=== PATIENT | male | born 1985 | race Caucasian/White ===

== ENCOUNTER 2017-09-19 09:17 | Emergency (ER) | payer SELFPAY ==
[2017-09-19] MEDS ORDERED: Ketorolac 60 MG/2 ML SDV IM ONE (09:42)
--- NOTE | 2017-09-19 09:43 | EDM.PDOC ---
<Stephanie Mcfarlane - Last Filed: 09/19/17 10:46> ED HPI GENERAL MEDICAL PROBLEM - General Chief Complaint: Back Pain or Injury Stated Complaint: BACK PAIN Time Seen by Provider: 09/19/17 09:42 Source of Information: Reports: Patient, Family - History of Present Illness Onset: Sudden Duration: Day(s): (4-5) Location: Reports: Back (L-3 S1) Associated Symptoms: Reports: No Other Symptoms - Related Data Allergies Allergy/AdvReac Type Severity Reaction Status Date / Time amoxicillin [From Augmentin] Allergy Rash Verified 09/19/17 09:28 clavulanic acid Allergy Rash Verified 09/19/17 09:28 [From Augmentin] Home Meds: Home Meds . [No Known Home Meds] 09/19/17 [History] ED ROS GENERAL - Review of Systems Review Of Systems: ROS reveals no pertinent complaints other than HPI. ED EXAM, GENERAL - Physical Exam Exam: See Below (See dictation) Course - Vital Signs Last Recorded V/S: Last Vital Signs Temp 98.4 F 09/19/17 09:24 Pulse 62 09/19/17 09:24 Resp 20 09/19/17 09:24 BP 138/80 09/19/17 09:24 Pulse Ox 99 09/19/17 09:24 - Orders/Labs/Meds Meds: Medications Discontinued Medications Generic Name Dose Route Start Last Admin Trade Name Rosario PRN Reason Stop Dose Admin Ketorolac Tromethamine 60 mg 09/19/17 09:42 09/19/17 10:02 Toradol IM 09/19/17 09:43 60 mg ONETIME ONE Administration Departure - Departure Disposition: Home, Self-Care 01 Clinical Impression: Low back pain - Discharge Information Referrals: PCP,None [Primary Care Provider] - Forms: ED Department Discharge Additional Instructions: The following information is given to patients seen in the emergency department who are being discharged to home. This information is to outline your options for follow-up care. We provide all patients seen in our emergency department with a follow-up referral. The need for follow-up, as well as the timing and circumstances, are variable depending upon the specifics of your emergency department visit. If you don't have a primary care physician on staff, we will provide you with a referral. We always advise you to contact your personal physician following an emergency department visit to inform them of the circumstance of the visit and for follow-up with them and/or the need for any referrals to a consulting specialist. The emergency department will also refer you to a specialist when appropriate. This referral assures that you have the opportunity for followup care with a specialist. All of these measure are taken in an effort to provide you with optimal care, which includes your followup. Under all circumstances we always encourage you to contact your private physician who remains a resource for coordinating your care. When calling for followup care, please make the office aware that this follow-up is from your recent emergency room visit. If for any reason you are refused follow-up, please contact the [facility] emergency department at and asked to speak to the emergency department charge nurse. Prescription has been written for hydrocodone/APAP 5/325 mg 1 tablet 3 times a day when necessary for pain #12 no refill Flexeril 10 mg 1 tablet 3 times a day as needed for muscle spasm Off work until 09/22/17 <Jens Coyle - Last Filed: 09/19/17 11:38> ED HPI GENERAL MEDICAL PROBLEM - General Source of Information: Reports: Patient - History of Present Illness INITIAL COMMENTS - FREE TEXT/NARRATIVE: HISTORY AND PHYSICAL: History of present illness: [ Patient has low back pain 6 out of 10 for 3 days no injury or trauma, patient pain began after extended period on the couch footdrop saddle anesthesia bowel or urine symptoms No intradural, ]Patient was seen in conjunction with stephanie mcfarlane Review of systems: As per history of present illness and below otherwise all systems reviewed and negative. Past medical history: As per history of present illness and as reviewed below otherwise noncontributory. Surgical history: As per history of present illness and as reviewed below otherwise noncontributory. Social history: No reported history of drug or alcohol abuse. Family history: As per history of present illness and as reviewed below otherwise noncontributory. Physical exam: HEENT: Atraumatic, normocephalic, pupils reactive, negative for conjunctival pallor or scleral icterus, mucous membranes moist, throat clear, neck supple, nontender, trachea midline. Lungs: Clear to auscultation, breath sounds equal bilaterally, chest nontender. Heart: S1S2, regular, negative for clicks, rubs, or JVD. Abdomen: Soft, nondistended, nontender. Negative for masses or hepatosplenomegaly. Negative for costovertebral tenderness. Pelvis: Stable nontender. Genitourinary: Deferred. Rectal: Deferred. Extremities: Atraumatic, negative for cords or calf pain. Neurovascular unremarkable. Right leg raise to 30 without radiculopathy some increase in pain Neuro: Awake, alert, oriented. Cranial nerves II through XII unremarkable. Cerebellum unremarkable. Motor and sensory unremarkable throughout. Exam nonfocal. Footdrop or saddle anesthesia Diagnostics: []Lumbar spine Therapeutics: Toradol 60 IM Impression: []Low back pain Definitive disposition and diagnosis as appropriate pending reevaluation and review of above. Lower Back Pain Score (Numeric/FACES): 8 Past Medical History - Past Health History Medical/Surgical History: Denies Medical/Surgical History - Infectious Disease History Infectious Disease History: Reports: Chicken Pox, Measles Social & Family History - Family History Family Medical History: Noncontributory - Caffeine Use Caffeine Use: Reports: Coffee - Recreational Drug Use Recreational Drug Use: No Course - Orders/Labs/Meds Meds: Medications Discontinued Medications Generic Name Dose Route Start Last Admin Trade Name Freq PRN Reason Stop Dose Admin Ketorolac Tromethamine 60 mg 09/19/17 09:42 09/19/17 10:02 Toradol IM 09/19/17 09:43 60 mg ONETIME ONE Administration Departure - Departure Time of Disposition: 11:37 Condition: Good
--- NOTE | 2017-09-19 10:52 | CR ---
EXAMINATION: Lumbar spine HISTORY: Pain COMPARISON: None TECHNIQUE: AP and lateral views of the lumbar spine. FINDINGS: The lumbar spinal alignment is normal. The vertebral body heights and disc spaces appear we ll-maintained. There is no fracture or dislocation. SI joints are symmetric. Bone mineralization is n ormal. IMPRESSION: Unremarkable lumbar spine.
== END 2017-09-19 11:48 | disposition home or self-care (01) ==
LOC: MW.ED 09:17
DX: M54.5 Low back pain (principal); Z88.1 Allergy status to other antibiotic agents
CPT/HCPCS: 72100; 96372; 99283; J1885; 99284

== ENCOUNTER 2019-12-18 08:10 | Emergency (ER) | payer SELFPAY ==
[2019-12-18] MEDS ORDERED: Acetaminophen/oxyCODONE 325-5 MG Tab PO ONE (08:35)
--- NOTE | 2019-12-18 08:47 | EDM.PDOC ---
ED HPI GENERAL MEDICAL PROBLEM - General Chief Complaint: Genitourinary Problem Stated Complaint: PAIN POST VESECTOMY Time Seen by Provider: 12/18/19 08:30 - History of Present Illness INITIAL COMMENTS - FREE TEXT/NARRATIVE: 34-year-old gentleman status post vasectomy in October 29 presented to ER for left groin and left testicular pain that started 2 days ago. Has been worsening since then. No penile discharge. never Had pain like this before. Worst with palpation. Nothing makes it better. Describes some urinary hesitancy. no vomiting no diarrhea. No other associated symptoms left groin, abdominal Pain Score (Numeric/FACES): 10 - Related Data Allergies Allergy/AdvReac Type Severity Reaction Status Date / Time amoxicillin [From Augmentin] Allergy Rash Verified 12/18/19 08:21 clavulanic acid Allergy Rash Verified 12/18/19 08:21 [From Augmentin] Home Meds: Home Meds Acetaminophen 650 mg PO Q6HR PRN 5 Days #30 tablet 12/18/19 [Rx] Acetaminophen/oxyCODONE [Percocet 325-5 MG] 1 each PO Q6HR PRN 2 Days #5 tab [Rx] Aspirin 81 mg PO DAILY #30 tab.chew 12/18/19 [Rx] Past Medical History - Past Health History Medical/Surgical History: Denies Medical/Surgical History - Infectious Disease History Infectious Disease History: Reports: Chicken Pox, Measles - Past Surgical History GI Surgical History: Reports: Appendectomy Male Surgical History: Reports: Vasectomy Musculoskeletal Surgical History: Reports: Other (See Below) Other Musculoskeletal Surgeries/Procedures:: Left Foot Social & Family History - Family History Family Medical History: Noncontributory - Tobacco Use Smoking Status *Q: Current Every Day Smoker Years of Tobacco use: 15 Packs/Tins Daily: 1 - Caffeine Use Caffeine Use: Reports: Coffee - Recreational Drug Use Recreational Drug Use: No ED ROS GENERAL - Review of Systems Review Of Systems: See Below Constitutional: Reports: No Symptoms HEENT: Reports: No Symptoms Respiratory: Reports: No Symptoms Cardiovascular: Reports: No Symptoms Endocrine: Reports: No Symptoms GI/Abdominal: Reports: Abdominal Pain : Reports: Pain Musculoskeletal: Reports: No Symptoms Skin: Reports: No Symptoms Neurological: Reports: No Symptoms Psychiatric: Reports: No Symptoms Hematologic/Lymphatic: Reports: No Symptoms Immunologic: Reports: No Symptoms ED EXAM, RENAL/ - Physical Exam Exam: See Below Text/Narrative:: In discomfort due to pain. Testicles were symmetric bilaterally normal lie. Could not elicit the cremasteric reflex bilaterally Uncircumcised Tenderness to palpation in the left testicle Exam Limited By: No Limitations General Appearance: Alert, WD/WN, No Apparent Distress Neck: Normal Inspection Respiratory/Chest: No Respiratory Distress, Lungs Clear, Normal Breath Sounds Cardiovascular: Normal Peripheral Pulses, Regular Rate, Rhythm, No Edema GI/Abdominal: Soft, Non-Tender (Male) Exam: No Hernia, Normal Inspection, Inguinal Lymphadenopathy, Testicular Tenderness (L) Rectal (Males) Exam: Deferred Back Exam: Normal Inspection. No: CVA Tenderness (L), CVA Tenderness (R) Neurological: Alert, Oriented, Normal Gait Psychiatric: Normal Affect Skin Exam: Warm Course - Vital Signs Last Recorded V/S: Last Vital Signs Temp 96.7 F L 12/18/19 08:17 Pulse 112 H 12/18/19 08:17 Resp 20 12/18/19 08:17 BP 114/81 12/18/19 08:17 Pulse Ox 98 12/18/19 08:17 - Orders/Labs/Meds Orders: Active Orders 24 hr Category Date Time Status Scrotal Duplex Ltd [US] Routine Exams 12/18/19 Taken CHLAMYDIA AND GONORRHEA BY TMA Stat Lab 12/18/19 08:36 Received Labs: Laboratory Tests 12/18/19 12/18/19 12/18/19 Range/Units 08:36 08:45 08:45 WBC 7.63 (4.0-11.0) K/uL RBC 5.46 (4.50-5.90) M/uL Hgb 17.6 H (13.0-17.0) g/dL Hct 51.1 H (38.0-50.0) % MCV 93.6 (80.0-98.0) fL MCH 32.2 H (27.0-32.0) pg MCHC 34.4 (31.0-37.0) g/dL RDW Std Deviation 41.1 (28.0-62.0) fl RDW Coeff of [place] 12 (11.0-15.0) % Plt Count 332 (150-400) K/uL MPV 10.20 (7.40-12.00) fL Neut % (Auto) 70.3 (48.0-80.0) % Lymph % (Auto) 18.5 (16.0-40.0) % Sawyer % (Auto) 9.8 (0.0-15.0) % Eos % (Auto) 1.0 (0.0-7.0) % Baso % (Auto) 0.4 (0.0-1.5) % Neut # (Auto) 5.4 (1.4-5.7) K/uL Lymph # (Auto) 1.4 (0.6-2.4) K/uL Sawyer # (Auto) 0.8 (0.0-0.8) K/uL Eos # (Auto) 0.1 (0.0-0.7) K/uL Baso # (Auto) 0.0 (0.0-0.1) K/uL Nucleated RBC % 0.0 /100WBC Nucleated RBCs # 0 K/uL Sodium 141 (136-148) mmol/L Potassium 3.7 (3.5-5.1) mmol/L Chloride 104 (98-107) mmol/L Carbon Dioxide 26.9 (21.0-32.0) mmol/L BUN 12 (7.0-18.0) mg/dL Creatinine 1.1 (0.8-1.3) mg/dL Est Cr Clr Drug Dosing 98.88 mL/min Estimated GFR (MDRD) > 60.0 ml/min Glucose 111 H (74-106) mg/dL Calcium 9.1 (8.5-10.1) mg/dL Total Bilirubin 0.6 (0.2-1.0) mg/dL AST 18 (15-37) IU/L ALT 28 (14-63) IU/L Alkaline Phosphatase 92 (46-116) U/L Total Protein 7.1 (6.4-8.2) g/dL Albumin 3.7 (3.4-5.0) g/dL Globulin 3.4 (2.6-4.0) g/dL Albumin/Globulin Ratio 1.1 (0.9-1.6) Lipase 136 (73-393) U/L Urine Color YELLOW Urine Appearance CLEAR Urine pH 7.5 (5.0-8.0) Ur Specific [place] 1.025 (1.001-1.035) Urine Protein NEGATIVE (NEGATIVE) mg/dL Urine Glucose (UA) NEGATIVE (NEGATIVE) mg/dL Urine Ketones TRACE H (NEGATIVE) mg/dL Urine Occult Blood NEGATIVE (NEGATIVE) Urine Nitrite NEGATIVE (NEGATIVE) Urine Bilirubin SMALL H (NEGATIVE) Urine Ictotest NEGATIVE Urine Urobilinogen 2.0 H (<2.0) EU/dL Ur Leukocyte Esterase NEGATIVE (NEGATIVE) Meds: Medications Discontinued Medications Generic Name Dose Route Start Last Admin Trade Name Rosario PRN Reason Stop Dose Admin Morphine Sulfate 4 mg 12/18/19 10:17 12/18/19 10:48 Morphine IVPUSH 12/18/19 10:18 4 mg ONETIME ONE Administration Oxycodone/Acetaminophen 1 tab 12/18/19 08:35 12/18/19 08:43 Percocet 325-5 Mg PO 12/18/19 08:36 1 tab ONETIME ONE Administration - Re-Assessments/Exams Free Text/Narrative Re-Assessment/Exam: 12/18/19 08:46 Stat scrotal ultrasound to rule out torsion 12/18/19 12:41 Ultrasound essentially ruled out torsion. Found to have a thrombosed varicocele. d/t severity of the pain patient was seen by Dr. Lobo. recommended aspirin and pain control. I reassesed the patient. he felt improved. testicular exam was unremarkable. His abdominal exam was soft, non tender non distended and he denied abdominal pain. The patient will follow up with Dr. Duke as an outpatient. I discussed return precautions with the patient. Patient educated on the discharge plan and agreed with the plan. Departure - Departure Time of Disposition: 12:47 Disposition: Home, Self-Care 01 Clinical Impression: Left varicocele - Discharge Information Instructions: Varicocele Referrals: PCP,None [Primary Care Provider] - Forms: ED Department Discharge Additional Instructions: Follow up with Dr. Lobo in office on Tuesday12/26/2019 at 100. Return to ED if you have worsening pain you develop abdominal pain fever vomiting or any concerns The following information is given to patients seen in the emergency department who are being discharged to home. This information is to outline your options for follow-up care. We provide all patients seen in our emergency department with a follow-up referral. The need for follow-up, as well as the timing and circumstances, are variable depending upon the specifics of your emergency department visit. If you don't have a primary care physician on staff, we will provide you with a referral. We always advise you to contact your personal physician following an emergency department visit to inform them of the circumstance of the visit and for follow-up with them and/or the need for any referrals to a consulting specialist. The emergency department will also refer you to a specialist when appropriate. This referral assures that you have the opportunity for follow-up care with a specialist. All of these measure are taken in an effort to provide you with optimal care, which includes your follow-up. Under all circumstances we always encourage you to contact your private physician who remains a resource for coordinating your care. When calling for follow-up care, please make the office aware that this follow-up is from your recent emergency room visit. If for any reason you are refused follow-up, please contact the [facility] Emergency Department at and asked to speak to the emergency department charge nurse. Sepsis Event Note - Evaluation Sepsis Screening Result: No Definite Risk - Focused Exam Vital Signs: Vital Signs Temp Pulse Resp BP Pulse Ox 12/18/19 08:17 96.7 F L 112 H 20 114/81 98 Date Exam was Performed: 12/18/19 Time Exam was Performed: 12:47 - My Orders Last 24 Hours: My Active Orders 12/18/19 Scrotal Duplex Ltd [US] Routine 12/18/19 08:36 CHLAMYDIA AND GONORRHEA BY TMA Stat - Assessment/Plan Last 24 Hours: My Active Orders 12/18/19 Scrotal Duplex Ltd [US] Routine 12/18/19 08:36 CHLAMYDIA AND GONORRHEA BY TMA Stat
[2019-12-18 09:16] LABS: BLOOD UREA NITROGEN,BUN 12 mg/dL (7.0-18.0); CARBON DIOXIDE,CO2 26.9 mmol/L (21.0-32.0); CHLORIDE,CL 104 mmol/L (98-107); GLUCOSE RANDOM 111 mg/dL (74-106); LIPASE 136 U/L (73-393); POTASSIUM,K 3.7 mmol/L (3.5-5.1); SODIUM,NA 141 mmol/L (136-148)
--- NOTE | 2019-12-18 10:01 | US ---
Testicular ultrasound: Multiple real-time images of the testicles were obtained. Comparison: No prior testicular imaging. Testicles have a homogeneous ultrasound appearance. No intratesticular abnormality is seen. Both arterial and venous blood flow are felt to be present within the testicles. Left-sided varicocele appears to be present showing some thrombus within the veins. Minimal hydrocele is noted on the right side. Measurements: Right testicle: 3.4 x 1.8 x 2.6 cm Left testicle: 3.2 x 1.9 x 2.6 cm Impression: 1. Left-sided varicocele showing some intraluminal thrombus within the varicocele. 2. Minimal right-sided hydrocele. 3. No intratesticular abnormality is appreciated. Diagnostic code #3 This report was dictated in [place] Standard Time
[2019-12-18] MEDS ORDERED: Morphine 4 MG/ML Syringe IVPUSH ONE (10:17)
--- NOTE | 2019-12-18 14:05 | US ---
EXAM DATE: 12/18/19 PATIENT'S AGE: 34 Testicular ultrasound: Multiple real-time images of the testicles were obtained. Comparison: No prior testicular imaging. Testicles have a homogeneous ultrasound appearance. No intratesticular abnormality is seen. Both arterial and venous blood flow are felt to be present within the testicles. Left-sided varicocele appears to be present showing some thrombus within the veins. Minimal hydrocele is noted on the right side. Measurements: Right testicle: 3.4 x 1.8 x 2.6 cm Left testicle: 3.2 x 1.9 x 2.6 cm Impression: 1. Left-sided varicocele showing some intraluminal thrombus within the varicocele. 2. Minimal right-sided hydrocele. 3. No intratesticular abnormality is appreciated. Diagnostic code #3 This report was dictated in [place] Standard Time Report Signed by Proxy. ANDRIY
== END 2019-12-18 13:17 | disposition home or self-care (01) ==
LOC: MW.ED 08:10
DX: I86.1 Scrotal varices (principal); F17.210 Nicotine dependence, cigarettes, uncomplicated; Z88.1 Allergy status to other antibiotic agents
CPT/HCPCS: 36415; 76870; 80053; 81003; 83690; 85025; 87491; 87591; 93976; 96374; 99284; A9270; J2270

== ENCOUNTER 2019-12-20 22:29 | Emergency (ER) | payer SELFPAY ==
[2019-12-20] MEDS ORDERED: Ketorolac 60 MG/2 ML SDV IM ONE (22:54)
--- NOTE | 2019-12-20 23:01 | EDM.PDOC ---
ED HPI GENERAL MEDICAL PROBLEM - General Chief Complaint: Genitourinary Problem Stated Complaint: BULGE IN GROIN AREA Time Seen by Provider: 12/20/19 22:56 Source of Information: Reports: Patient History Limitations: Reports: No Limitations - History of Present Illness INITIAL COMMENTS - FREE TEXT/NARRATIVE: He was seen 2 days ago with left-sided testicular pain. Patient still has the pain. Patient was diagnosed as a with a left-sided varicocele sawing some intraluminal thrombus within the varicocele patient had minimal right-sided hydrocele no intestinal abnormality was appreciated by ultrasound. Patient states he has pain now. Patient did not wear scrotal support and states his pain medicine is not working. 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 Medication(s) (Percocet 5 tabs) left inguinal Pain Score (Numeric/FACES): 10 - Related Data Allergies Allergy/AdvReac Type Severity Reaction Status Date / Time amoxicillin [From Augmentin] Allergy Rash Verified 12/20/19 22:43 clavulanic acid Allergy Rash Verified 12/20/19 22:43 [From Augmentin] Home Meds: Home Meds Acetaminophen 650 mg PO Q6HR PRN 5 Days #30 tablet 12/18/19 [Rx] Acetaminophen/oxyCODONE [Percocet 325-5 MG] 1 each PO Q6HR PRN 2 Days #5 tab [Rx] Aspirin 81 mg PO DAILY #30 tab.chew 12/18/19 [Rx] Past Medical History - Past Health History Medical/Surgical History: Denies Medical/Surgical History HEENT History: Reports: None Cardiovascular History: Reports: None Respiratory History: Reports: None Gastrointestinal History: Reports: None Genitourinary History: Reports: None Musculoskeletal History: Reports: None Neurological History: Reports: None Psychiatric History: Reports: None Endocrine/Metabolic History: Reports: None 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 Hematologic History: Reports: None Immunologic History: Reports: None Oncologic (Cancer) History: Reports: None Dermatologic History: Reports: None - Infectious Disease History Infectious Disease History: Reports: None - Past Surgical History Head Surgeries/Procedures: Reports: None GI Surgical History: Reports: Appendectomy Male Surgical History: Reports: Vasectomy Musculoskeletal Surgical History: Reports: Other (See Below) Other Musculoskeletal Surgeries/Procedures:: Left Foot Social & Family History - Family History Family Medical History: Noncontributory - Tobacco Use Smoking Status *Q: Current Every Day Smoker Years of Tobacco use: 15 Packs/Tins Daily: 0.5 - Caffeine Use Caffeine Use: Reports: Energy Drinks - Recreational Drug Use Recreational Drug Use: No ED ROS GENERAL - Review of Systems Review Of Systems: See Below Constitutional: Reports: No Symptoms. Denies: Fever, Chills, Malaise HEENT: Reports: No Symptoms. Denies: Contact Lenses, Dental Pain, Ear Discharge , Eye Discharge, Eye Pain Respiratory: Reports: No Symptoms. Denies: Shortness of Breath, Wheezing, Pleuritic Chest Pain Cardiovascular: Reports: No Symptoms. Denies: Chest Pain, Blood Pressure Problem, Claudication Endocrine: Reports: No Symptoms. Denies: Fatigue, High Glucose GI/Abdominal: Reports: No Symptoms. Denies: Abdominal Pain, Anorexia, Black Stool, Constipation, Diarrhea : Reports: Other (left Sided groin pain). Denies: Discharge, Dysuria, Flank Pain, Hematuria, Incontinence Musculoskeletal: Reports: No Symptoms Skin: Reports: No Symptoms Neurological: Reports: No Symptoms Psychiatric: Reports: No Symptoms Hematologic/Lymphatic: Reports: No Symptoms Immunologic: Reports: No Symptoms ED EXAM, RENAL/ - Physical Exam Exam: See Below Text/Narrative:: Patient has left-sided groin pain. Patient has a history of varicocele on the left. Patient did not use any supportive garments. And is in pain again Exam Limited By: No Limitations General Appearance: Alert, WD/WN, Moderate Distress Ears: Normal External Exam, Normal Canal, Hearing Grossly Normal, Normal TMs Nose: Normal Inspection, Normal Mucosa Throat/Mouth: Normal Inspection, Normal Lips Head: Atraumatic, Normocephalic Neck: Normal Inspection, Supple, Non-Tender Respiratory/Chest: No Respiratory Distress, Lungs Clear, No Accessory Muscle Use , Chest Non-Tender. No: Crackles Cardiovascular: Normal Peripheral Pulses, Regular Rate, Rhythm GI/Abdominal: Normal Bowel Sounds, Soft, Non-Tender, No Organomegaly, No Distention, No Abnormal Bruit (Male) Exam: No Hernia, Scrotal Swelling, Scrotum Tenderness (L), Testicular Tenderness (L) Rectal (Males) Exam: Deferred Back Exam: Normal Inspection, Full Range of Motion Extremities: Normal Inspection, Normal Range of Motion, No Pedal Edema, Normal Capillary Refill Psychiatric: Normal Affect, Normal Mood Skin Exam: Warm, Dry, Intact, Normal Color Lymphatic: No Adenopathy Course - Vital Signs Text/Narrative:: 34-year-old male presents the emergency room with left-sided groin pain. Patient was recently diagnosed by ultrasound having a left-sided varicocele with some intraluminal thrombus within the variceal. Patient had a minimal minimal right-sided hydronephrosis with no intestinal abnormality. Patient states he still has the pain. Patient did not use any supportive garments at the at the discharge. Last Recorded V/S: Last Vital Signs Temp 97.5 F 12/20/19 22:43 Pulse 55 L 12/20/19 22:43 Resp 18 12/20/19 22:43 BP 128/84 12/20/19 22:43 Pulse Ox 98 12/20/19 22:43 - Orders/Labs/Meds Meds: Medications Discontinued Medications Generic Name Dose Route Start Last Admin Trade Name Rosario PRN Reason Stop Dose Admin Ketorolac Tromethamine 60 mg 12/20/19 22:54 Toradol IM 12/20/19 22:55 ONETIME ONE Departure - Departure Time of Disposition: 23:03 Disposition: Home, Self-Care 01 Condition: Good Clinical Impression: Left varicocele - Discharge Information Instructions: Scrotal Swelling, Varicocele Referrals: PCP,None [Primary Care Provider] - Additional Instructions: Patient is to use a scrotal support and ice to the area 20 minutes each hour for the next 2 days while awake. He is to follow-up with his urologist Sepsis Event Note - Evaluation Sepsis Screening Result: No Definite Risk - Focused Exam Vital Signs: Vital Signs Temp Pulse Resp BP Pulse Ox 12/20/19 22:43 97.5 F 55 L 18 128/84 98 Date Exam was Performed: 12/20/19 Time Exam was Performed: 22:56
== END 2019-12-20 23:23 | disposition home or self-care (01) ==
LOC: MW.ED 22:29
DX: I86.1 Scrotal varices (principal); F17.210 Nicotine dependence, cigarettes, uncomplicated; Z88.1 Allergy status to other antibiotic agents
CPT/HCPCS: 96372; 99284; J1885